=== PATIENT | male | born 1980 | race Caucasian/White ===

== ENCOUNTER 2025-04-17 12:38 | Outpatient (AMB) | payer OTHER, SELFPAY ==
--- NOTE | 2025-04-17 12:46 | MHC.OFFVIS ---
Intake Visit Reasons: sz disorder Allergies No Known Allergies (No Known Allergies*) Allergy (Unverified 02/01/20 15:00) HPI Comments Details: The patient is a 44 year old individual presenting with debilitating headaches that have increased in frequency over the last few weeks. The patient reports experiencing headaches almost every day for the past 3-4 weeks, a significant increase from the previous frequency of a couple of times a month. The pain is typically on one side of the head and is perceived to stem from the location of a known cavernous angioma. Associated symptoms include dizziness when bending over and returning to a standing position, as well as a sensation of numbness and disorientation within the brain, particularly upon waking. Caffeine has recently been identified as a trigger. The patient has a history of a seizure disorder since the age of 5, which is attributed to a cavernous angioma. The patient was initially treated with carbamazepine (Tegretol) but was switched to Keppra 1000 mg twice daily a couple of years ago after being hospitalized for a pulmonary embolism. The last seizure occurred years ago due to medication non-adherence. The last brain scan was a long time ago, and the patient has not had regular neurologic follow-ups for some time. Chronic insomnia has been an issue for over a year, with the patient waking up feeling unrested and foggy. The patient reports not getting deep sleep and sometimes wakes after only a couple of hours. Previous treatments from primary care included hydroxyzine, and the patient has tried magnesium, tea, ZzzQuil, and a THC pen at night to aid sleep. Past medical history includes anxiety and depression, with poor tolerance to SSRIs in the past due to side effects. The patient has been sober from alcohol for 18 months and does not use other drugs but does use a THC pen for sleep. The patient is right-handed, works full-time, and is currently experiencing significant life stressors related to moving and merging families. Review of Systems Narrative Constitutional:? Complain of tiredness and fatigue HEENT:?No headache, vision changes, hearing loss, nasal congestion, sore throat. Cardiovascular:?No chest pain, palpitations, orthopnea, PND, or leg swelling. Respiratory:?No cough, shortness of breath, wheezing, or hemoptysis. Gastrointestinal:?No nausea, vomiting, abdominal pain, diarrhea, or constipation. Genitourinary:?No dysuria, frequency, incontinence, or hematuria. Musculoskeletal:? Complain of back pain neck pain and leg cramping Neurological:? Complain of numbness tingling, memory problems, headaches, dizziness, seizures, and problem with sleeping Psychiatric:?No anxiety, depression, mood swings, sleep disturbance, or hallucinations. Endocrine:?No heat/cold intolerance, polydipsia, polyuria, or hair/skin changes. Hematologic/Lymphatic:?No easy bruising, bleeding, or lymphadenopathy. Integumentary (Skin):?No rash, lesions, itching, or color changes. Allergic/Immunologic:?No seasonal allergies, hives, or recurrent infections. Physical Exam Neuro Other: Mental Status: Alert and oriented to person, place, and time. Normal attention. Normal spontaneous speech, fluency, and comprehension. No obvious issues with mood and memory. Affect is appropriate. Cranial Nerves: CN II: Visual bailey full to confrontation, visual acuity intact. CN III, IV, : Pupils equal, round, reactive to light and accommodation. Extraocular movements are normal. CN V: Facial sensation is normal. CN VII: Facial movements symmetrical. CN VIII: Hearing intact to bedside conversation is normal. CN IX, X: Palate elevates symmetrically. CN XI: Shoulder shrug and head turn symmetrical. CN XII: Tongue midline without atrophy or fasciculations. Motor: Bulk and tone normal in all extremities. No significant muscle weakness in arms and legs. No drift. Reflexes: Deep tendon reflexes 2+ and symmetric. Plantar response down-going bilaterally. Coordination: Aadjry-dq-daof with mild bilateral hand tremor Gait and Station: No obvious gait abnormality. No ataxia or instability. Sensory: Intact to light touch, pinprick, and vibration. Romberg is negative. Extrapyramidal: Mild bilateral hand postural tremor Speech: Normal; no dysarthria or tremor. Assessment & Plan Assessment & Plan (1) Generalized seizure disorder: Code(s): G40.309 - Generalized idiopathic epilepsy and epileptic syndromes, not intractable, without status epilepticus Category: Medical (2) Migraine without aura: Code(s): G43.009 - Migraine without aura, not intractable, without status migrainosus Category: Medical Qualifiers: Status migrainosus presence: without status migrainosus Intractability: not intractable Qualified Code(s): G43.009 - Migraine without aura, not intractable, without status migrainosus Plan Impression: a: Generalized seizure disorder since childhood attributed to a venous angioma b: Frequent migraine w/o aura type of headaches c: Mild postural essential tremor d: Insomnia due to untreated anxiety e: Anxiety disorder Rec: a: MRI brain WWO b: EEG c: SED rate/Lyme test/LFTs/Keppra level d: Sertraline 25mg one with breakfast I explained to the patient that the headaches are most likely migraine-type, but due to their recent and frequent onset, I ordered an MRI of the brain, an EEG, and blood tests to be thorough and provide peace of mind, particularly given the history of a cavernous angioma. I prescribed sumatriptan as a rescue medication for acute headaches. We had a detailed discussion about the chronic insomnia, which I believe is related to an overactive sympathetic nervous system likely exacerbated by stress. The patient expressed significant hesitation about retrying an SSRI due to past negative experiences with side effects, including sexual dysfunction. I explained the rationale for using a very low dose of sertraline (25 mg) for anxiety, noting that it is less likely to cause the same side effects as the higher doses used for depression. After discussing the potential benefits and the four-week timeframe for efficacy, the patient agreed to try sertraline. I also advised daily walking as a non-pharmacological approach to improve sleep. Orders: Orders Liver Panel Today G40.309 - Generalized idiopathic epilepsy and epileptic syndromes, not intractable, without status epilepticus MR head/brain wo/w con Today G40.309 - Generalized idiopathic epilepsy and epileptic syndromes, not intractable, without status epilepticus EEG Routine Today G40.309 - Generalized idiopathic epilepsy and epileptic syndromes, not intractable, without status epilepticus Erythrocyte Sedimentation Rate Today G40.309 - Generalized idiopathic epilepsy and epileptic syndromes, not intractable, without status epilepticus Lyme IgG/IgM w/reflex to WB Today G40.309 - Generalized idiopathic epilepsy and epileptic syndromes, not intractable, without status epilepticus Levetiracetam Keppra Today G40.309 - Generalized idiopathic epilepsy and epileptic syndromes, not intractable, without status epilepticus Medications: New sumatriptan succinate do not exceed 4 doses per 24 hrs 50 mg PO Q2-4H PRN 10 tabs 0RF migraine headache sertraline 25 mg PO DAILY 30 tabs 0RF Coding Level of Care Code New Pt Level 5 (89606) Diagnoses Generalized seizure disorder G40.309 Migraine without aura and without status migrainosus, not intractable G43.009 Status migrainosus presence: without status migrainosus Intractability: not intractable Time Spent (min) 60
--- OUTSIDE RECORDS SUMMARY | 2025-04-17 14:36 | XMS_ITS | Clinical Summary ---
Author Organization [address] Address [address] [place] [address] Phone Care Team Providers Care Trouble Shooting Mechanic Name Role Phone Adonay Black MD Primary Care Provider [phone] Allergies Active Allergy Reactions Criticality Noted Date Comments Morphine Swelling 10/31/2024 Medications hydrOXYzine HCL (ATARAX) 10 mg tabletIndication s:Insomnia, unspecified type TAKE 1-2 TABLETS BY MOUTH NIGHTLY NEEDED FOR SLEEP 180 tablet 3 10/31/2024 Active levETIRAcetam (KEPPRA) 1,000 mg tablet Take 1 tablet (1,000 mg total) by mouth 2 (two) times a day. 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 See discharge summary. Jimbo 01/06. Follow up 4 mo Multinodular goiter 12/22/2022 Subclinical hyperthyroidism 12/22/2022 Thyroid nodule 11/26/2022 Cavernous angioma 11/13/2022 Overview (04/07/2024): Per patient.. [facility] showed frontal lobe lesion that patient has had for some time which has been causing his seizure disorder. we have no documentation on file of MRI or DX previously Lumbar back pain with radicu lopathy affecting right lower extremity 04/17/2022 Dysplastic nevus 11/06/2010 Overview (04/07/2024): Dysplastic nevus 11/06 upper back (moderate atypia) Seizure disorder ([facility] V24, [facility] V28) 10/2008 Overview (04/07/2024): Neurology [facility] Immunizations Immunization Administration Dates Next Due Influenza Quadravalent, MDCK , 0.5ml, preservative free (Flucelvax) 6mo and older 02/22/2023,03/18/2021,01/30/2019 Influenza Quadrivalent, 0.5m l, preservative free (Fluarix; FluLaval; Fluzone) ages 6mo and older (Afluria) 3yo and older 02/15/2017 Influenza trivalent, 0.5mL, preservative free (Fluarix; FluLaval; Fluzone) ages 6mo and older (Afluria) 3 years and older 04/06/2024,03/18/2021,03/23/2014,2012 Influenza trivalent, with preservative (Fluzone; Afluria) 6mo and older 03/23/2014,02/03/2013 Influenza, live, intranasal, trivalent (FluMist) 2yo to less than 50yo 04/09/2024 Tdap Tetanus diptheria acell ular pertussis (Boostrix; Adacel) 7yo and older 11/26/2021,06/26/2010 Surgical History Surgery Date Site/Laterality Comments OTHER SURGICAL HISTORY PROCEDURE: HISTORY OTHER; COMMENT: oral surgery MOLE REMOVAL PROCEDURE: HISTORICAL MOLE (REMOVAL OF) BACK SURGERY PROCEDURE: HISTORICAL BACK SURGERY; COMMENT: Right L5-S1 Microdiscectomy VASECTOMY 03/17/2024 - 04/15/2024 Medical History Medical History Date Comments Seizure disorder ([facility] V24, [facility] V28) 1984 DX:Seizure disorder ([facility]) Dysplastic nevus 11/06/2010 DX:Dysplastic n evus Anxiety DX:Anxiety Thyroid nodule 11/26/2022 DX:Thyroid nodul e Family History Medical History Relation Name Comments Diabetes Grandparent Relation Name Status Comments Father Alive Grandparent Maternal Grandmother Alive Mother Alive Paternal Grandfather Paternal Grandmother Social History Tobacco Use Types Packs/Day Years Used Date Smoking Tobacco: Never Smokeless Tobacco: Never Tobacco Cessation:Counseling Given: Not Answered Alcohol Use Standard Drinks/Week Comments Yes 0 (1 standard drink = 0.6 oz pur e alcohol) Housing Instability Answer Date Recorde d Are you worried that in the next 2 months you may not have stable housing? Patient declined 06/05/2024 Food Access & Nutrition Answer Date Rec orded Do you have access to a vari ety of food including fruits and vegetables? Yes 06/05/2024 Health Literacy Answer Date Recorded How often do you need to hav e someone help you when you read instructions, pamphlets, or other written material from your doctor or pharmacy? Never 06/05/2024 Caregiver: How often do you need to have someone help you when you read instructions, pamphlets, or other written material from your doctor or pharmacy? Not on file 06/05/2024 Financial Risk Answer Date Recorded How hard is it for you to pa y for the very basics like food, housing, medical care, and air conditioning / heating? Very hard 06/05/2024 Transportation Answer Date Recorded Has the lack of transportati on kept you from meetings, work, or from getting things needed for daily living? No Has the lack of transportati on kept you from medical appointments or from getting medications? No 06/05/2024 Social Isolation Answer Date Recorded How often do you feel lonely or isolated from th ose around you? Often 06/05/2024 Food Risk Answer Date Recorded Within the past 12 months we worried whether our food would run out before we got money to buy more. Sometimes true 025 Within the past 12 months th e food we bought just didn't last and we didn't have money to get more. Sometimes true 06/05/2024 Dependent Care Answer Date Recorded Do you need help finding or paying for care for your loved ones. For example, child care centre manager or elderly care for an older adult? No 06/05/2024 Education Answer Date Recorded Do you think completing more education or training, like finishing a GED, going to college, or learning a trade, would be helpful for you? No 06/05/2024 Employment and Income Answer Date Recor ded During the last four weeks, have you been actively looking for work? Yes 06/05/2024 Living Situation Answer Date Recorded What is your living situation? Unrecognized valu e 06/05/2024 Sex and Gender Information Value Date Recorded Sex Assigned at Not on file Legal Sex Male 1:08 PM EST Gender Identity Not on file Sexual Orientation Not on file Obstetrics History Last Filed Vital Signs Vital Sign Reading Time Taken Comments Blood Pressure 120/80 01/11/2025 1:13 PM EDT Pulse 90 01/11/2025 1:13 PM EDT Temperature 36.6 C (97.8 F) 10/31/2024 1:34 PM EDT Respiratory Rate 18 01/11/2025 1:13 PM EDT Oxygen Saturation - - Inhaled Oxygen Concentration - - Weight 83.5 kg (184 lb) 01/11/2025 1:13 PM EDT Height 185.4 cm (6' 1 ) 01/11/2025 1:13 PM EDT Body Mass Index 24.28 01/11/2025 1:13 PM EDT Plan of Treatment Health Maintenance Due Date Last Done Comments Hepatitis B Vaccines (1 of 3 - 19+ 3-dose series) 07/17/1999 HPV Vaccines (1 - 3-dose SCDM series) 07/17/2007 COVID-19 Vaccine ( season) 2025 04/21/2021, 09/14/2020, 08/23/2020 Influenza Vaccine (#1) 2025 , 04/06/2024, 02/22/2023, Additional history exists Social Influencers of Health Screening 06/05/2025 06/05/2024 Cholesterol Screening (Lipid Panel) 09/23/2027 09/22/2022 DTaP,Tdap,and Td Vaccines (3 - Td or Tdap) 11/27/2031 11/26/2021, 06/26/2010 RSV Immunization Adult Patients (1 - 1-dose 75+ series) 07/17/2055 HIV Screening Completed 05/13/2023 Hepatitis C Screening Completed 05/13/2023 Depression Screening Completed 06/05/2024 HIB Vaccines Aged Out No longer eligi ble based on patient's age to complete this topic Hepatitis A Vaccines Aged Out No long er eligible based on patient's age to complete this topic IPV Vaccines Aged Out No longer eligi ble based on patient's age to complete this topic MMR Vaccines Aged Out No longer eligi ble based on patient's age to complete this topic Meningococcal ACWY Vaccine Aged Out N o longer eligible based on patient's age to complete this topic Meningococcal B Vaccine Aged Out No l onger eligible based on patient's age to complete this topic Pneumococcal Vaccine: Pediatrics (0 to 5 Years) and At-Risk Patients (6 to 49 Years) Aged Out No longer eligible based on patient's age to complete this topic RSV Immunization Patients Under 20 months Aged Out No longer eligible based on patient's age to complete this topic Varicella Vaccines Aged Out No longer eligible based on patient's age to complete this topic Procedures Procedure Name Priority Date/Time Associated Diagnosis Comments HEPATITIS C SCREENING Routine 05/13/2023 HIV SCREENING Routine 05/13/2023 LIPID PANEL Routine 09/22/2022 from Last 3 Months or Most Recently Relevant to Health Maintenance Results * HIV Screening (05/13/2023) Pathologist [facility] HIV Screening Abstracted [facility] Provider HEALTH MAINTENANCE Final Result * Hepatitis C Screening (05/13/2023) [facility] Hepatitis C Screening Abstracted [facility] Provider HEALTH MAINTENANCE Final Result * Lipid panel (09/22/2022) [facility] LDL/HDL Ratio 2 0 - 4 Triglycerides 57 0 - 150 mg/dL Cholesterol 159 0 - 200 mg/dL HDL 88 >=40 mg/dL LDL Cholesterol 60 0 - 100 mg/dL Blood Venous blood specimen / Unknown [facility] Provider LAB BLOOD ORDERABLES Isabel l Result from Last 3 Months or Most Recently Relevant to Health Maintenance Insurance [facility] Care Teams Trouble Shooting Mechanic Relationship Specialty Start Date End Date Adonay Black MD [address] [place] [address] PCP - General 04/26/10
--- OUTSIDE RECORDS SUMMARY | 2025-04-17 14:36 | XMS_ITS | Data Portability ---
Author Organization [facility] - Oscar Hernandez [facility], [facility] Address [address] [place] [address] Assessment No assessment recorded. Plan of Treatment Reminders Order Date Submit Date Provider Last Modified By Organization Details Last Modified Time Details Appointments None recorded. Lab None recorded. Referral physical therapist referral - Evaluate & Rx Lumbar Stabilizati on Program 2023 024 [email or web address] Not available 13:01:57 Procedures None recorded. Surgeries None recorded. Imaging XR, lumbosacral spine, 4 or more view - 325 est pt l-spine series 4v 2023 024 [email or web address] 14 [facility], [address] [facility], [facility] [address], [place], [address], 4 13:01:57 Medication Orders cyclobenzap rine 5 mg tablet 2023 024 [email or web address] 14 [id number], [address] [place], [address], 4 13:01:57 Patient TargetsNo targets recorded. Patient InstructionsNo instructions recorded. Reason for Referral Physical Therapist Referral for Lumbar spondylosis Evaluate & RxLumbar Stabilization Program Referring Physician: Phuc Murry, Orthopedic Surgery, [id number] Encounter Date: 09/01/2023 Results Created Date Observation Date Name Description Value Unit Range Abnormal Flag Note LastModifiedBy Organization Detail LastModifiedTime 01/14/20 24 05/29/2022 imagi ng/di agnos tic resul t No observ ation record ed. [email or web address] Not Available 12/17 14:47:18 Result Notes None recorded. Problems Name Problem SNOMED Code Status Onset Date Resolution Date Notes Provider Name and Address Organization Details Recorded Time Lumbar spondylosis 494347402 Active 2023 Phuc Murry MD [address] [place] [address] [address], [place], [address], [facility] 4 10:51:22 Problem Notes None recorded. Medical Equipment None Reported. Allergies Allergen ID Allergen Name Allergen Category Reaction Reaction Severity Criticality Documentation Date Start Date Code Code System Note Provider Name and Address Organization Details Recorded Time 074512 morphine medicatio n Not available Not available Not available 09/01/2023 7052 RxNorm BENJA ENRIQUE [facility] 11:49:38 Medications Name Sig Start Date Stop Date Status Note LastModified by Organization Details LastModified Time benzonatate 200 mg capsule TAKE 1 CAPSULE BY MOUTH THREE TIMES A DAY NEEDED FOR COUGH FOR 7 DAYS active Not Available Not Available No t Available carbamazepine ER 200 mg tablet,extended release,12 hr TAKE 2 TABLETS BY MOUTH EVERY MORNING AND 3 TABS AT BEDTIME active Not Available Not Available No t Available escitalopram 10 mg tablet TAKE 1 TABLET BY MOUTH EVERY DAY active Not Available Not Available No t Available cyclobenzaprine 5 mg tablet TAKE 1 TABLET BY MOUTH NEEDED FOR 14 DAYS. active Not Available Not Available No t Available mirtazapine 7.5 mg tablet TAKE 1 TABLET BY MOUTH AT BEDTIME active Not Available Not Available No t Available levetiracetam 1,000 mg tablet TAKE 1 TABLET BY MOUTH TWICE A DAY active Not Available Not Available No t Available Eliquis 5 mg tablet TAKE 1 TABLET BY MOUTH TWICE A DAY active Not Available Not Available No t Available Eliquis DVT-PE Treatment 30-Day Starter 5 mg (74 tablets) in dose pack TAKE 2 TABLETS BY MOUTH TWO TIMES A DAY FOR 12 DOSES, THEN TAKE TAKE 1 TABLET BY MOUTH TWO TIMES A DAY active Not Available Not Available No t Available Vitals Date Recorded Body height Body mass index (BMI) Body weight Provider Name and Address Organization Details Last Updated DateTime 09/01/2023 187.96 cm 23.1 kg/m2 16251.63 g BENJA ENRIQUE [facility] 09/01/2023 10:23:08 Social History None recorded. Functional Status None recorded. Mental Status None recorded. Family History Nothing Reported. Medical History Condition Response Allergies/Hayfever N Coronary Artery Disease N Anxiety/Depression N Emphysema N Thyroid Problems N COPD N Pacemaker N Anemia N Kidney/Bladder Problems N Vascular Disease N Heart Attack ([place]) N Gastrointestinal Disease N Diabetes N Autoimmune disease N Bleeding Disorder N Orthotics N Arthritis N Seizures/Epilepsy N Blood Clot N AIDS/HIV N Congestive Heart Failure (CHF) N Acid Reflux (GERD) N Cancer N Stroke N Asthma N Peripheral Vascular Disease N Sleep Apnea N Hepatitis N Heart Disease N Rheumatoid Arthritis N Arrhythmia N Pulmonary Embolism N Fibromyalgia N Hypertension N Osteoporosis N Past Encounters Encounter ID Performer Location Encounter Start Date Encounter Closed Date Diagnosis/Indication Diagnosis SNOMED-CT Code Diagnosis ICD10 Code Diagnosis IMO Codes Diagnosis Note [id number] Phuc Murry MD [place] [address] [place] [address] 09/01/2023 10:09:43 09/21/2023 14:27:56 Low back pain 605546573 M54.50 Lumbar spondylosis 36726 0009 M47.896 43-year-ol d male with lumbar spondylosi s. Diagnosis and treatment options were discussed. His prior radicular symptoms have resolved. Largest complaint today is lower back pain. He is currently on Eliquis for pulmonary embolism. Appropriat e timing and doses of acetaminop hen were discussed. I will prescribe tizanidine to help with his spasms. I will refer him to physical therapy for the lumbar spine he will follow-up in 6 weeks.Leena ent has been prescribed medication today. Risks, benefits interactio ns with other medication s have been reviewed and gone over with the patient today. It has been electronic ally sent to the pharmacy. Health Concerns Section Related Observation LastModified by Organization Detai ls LastModified Time None Recorded Concern Status LastModified by Organization Details LastModified Time None Recorded Advance Directives Directive None Recorded Payers Insurance Date Sequence Insurance Name Policy Number Policy Rodriguez Covered Member ID Rodriguez Member ID Guarantor Name 10/18/[address] [place] [address] ([facility]) [id number] Alexx Quintero [id number] Alexx Quintero Notes Date Note Type Note Provider Name and Address Organization Details Recorded Time 09/01/2023 text/html ROS as noted in the HPI 43-year-old male previously seen about a year and a half ago follows up for the lumbar spine. He states that he had an illness and sustained a pulmonary embolism and is on anticoagulation which delayed treatment for his back. However last encounter he was noted to have a disc herniation with radiculopathy which has resolved at this time. He complains of mostly axial back pain in the lower back in the region of the sacroiliac joint and just proximal. Denies radiating pain or numbness and tingling. Currently taking Tylenol. Phuc Murry MD [address] [place] [address] [address], [place], [address], [facility] 09/01/2023 11:13:26
--- OUTSIDE RECORDS SUMMARY | 2025-04-17 14:36 | XMS_ITS | Clinical Summary ---
Author Organization [facility] Address [address] [place] [address] Care Team Providers Care Systems Designer Name Role Phone Jason Black MD Primary Care Provider [phone] Allergies No known active allergies Medications Medication Sig Dispensed Refills Start Date End Date Status Eliquis 5 MG TABS tablet Take 1 tablet (5 mg total) by mouth 2 (two) times a day. 0 11/28/2022 Active carBAMazepine (TEGretol XR) 200 MG 12 hr tablet TAKE 2 TABLETS BY MOUTH EVERY MORNING AND 3 TABS AT BEDTIME 0 10/15/2022 Active levETIRAcetam (KEPPRA) 1000 MG tablet Take 1 tablet (1,000 mg total) by mouth 2 (two) times a day. 0 11/26/2022 Active Active Problems No known active problems Social History Tobacco Use Types Packs/Day Years Used Date Smoking Tobacco: Never Smokeless Tobacco: Never Tobacco Cessation:Counseling Given: Not Answered Alcohol Use Standard Drinks/Week Comments Yes 0 (1 standard drink = 0.6 oz pur e alcohol) daily Sex and Gender Information Value Date Recorded Sex Assigned at Male 09/23/2022 10:23 AM EDT Gender Identity Not on file Sexual Orientation Not on file Job Start Date Occupation Industry Not on file Not on file Not on file Last Filed Vital Signs Vital Sign Reading Time Taken Comments Blood Pressure 115/65 09/14/2023 10:16 AM EDT Pulse 84 09/14/2023 10:16 AM EDT Temperature 36.3 C (97.3 F) 09/14/2023 10:16 AM EDT Respiratory Rate - - Oxygen Saturation 100% 09/14/2023 10:16 AM EDT Inhaled Oxygen Concentration - - Weight 79.8 kg (176 lb) 09/14/2023 10:16 AM EDT Height 185.4 cm (6' 1 ) 09/14/2023 10:16 AM EDT Body Mass Index 23.22 09/14/2023 10:16 AM EDT Plan of Treatment Health Maintenance Due Date Last Done Comments Hepatitis B Vaccines (1 of 3 - 3-dose series) 1980 Hepatitis C Screening 1980 Depression Screening 1992 Preventative Health Evaluation 1998 COVID-19 Vaccine ( season) 2025 04/21/2021, 09/14/2020, 08/23/2020 Influenza Vaccine (#1) 2025 , 03/18/2021, 01/30/2019, Additional history exists DTap / Tdap / Td (3 - Td or Tdap) 11/27/2031 11/26/2021, 06/26/2010 Pneumococcal Vaccine Aged Out No long er eligible based on patient's age to complete this topic RSV Ped < 20 months Aged Out No longe r eligible based on patient's age to complete this topic Care Teams Systems Designer Relationship Specialty Start Date End Date Jason Black MD PCP - General Conveyor Worker 09/23/22
--- OUTSIDE RECORDS SUMMARY | 2025-04-17 14:36 | XMS_ITS | Encounter Summary ---
Author Organization [facility] Address [address] [place] [address] Care Team Providers Care Prover Name Role Phone Adonay Black MD Primary Care Provider [phone] Encounter Details Date Type Department Care Team (Latest Contact Info) Description 04/03/2024 Lab Requisition [facility] - Main Lab [address] [facility] [place] [id number] Gerardo Aguilera MD [address] [place] [address] Encounter for sterilization Social History Tobacco Use Types Packs/Day Years Used Date Smoking Tobacco: Never Smokeless Tobacco: Never Alcohol Use Standard Drinks/Week Comments Yes 0 (1 standard drink = 0.6 oz pur e alcohol) Sex and Gender Information Value Date Recorded Sex Assigned at Not on file Legal Sex Male 1:08 PM EST Gender Identity Not on file Sexual Orientation Not on file documented as of this encounter Plan of Treatment Not on file documented as of this encounter Procedures Procedure Name Priority Date/Time Associated Diagnosis Comments AP OUTSIDE CONSULT Routine 03/28/2024 Encounter for sterilization documented in this encounter Results * Anatomic pathology outside consult (03/28/2024) Final Diagnosis A. Vas Deferens, Right, vasectomy: - Vas deferens within normal limits; loops of lumen, epithelium, and muscle layers present. B. Vas Deferens, Left, vasectomy: - Vas deferens within normal limits; loops of lumen, epithelium, and muscle layers present. 04/03/2024 1:42 PM EST [facility] at 1342 EST Clinical Information Z30.2 - Encounter for sterilization [id number] 04/03/2024 1:42 PM EST [facility] Gross Description A. Vas Deferens, Right, Right: Labeled right vas deferens . Received in formalin is a 0.2 x 0.3 cm rubbery, saha, tubular portion of tissue, with a central pinpoint lumen, which is submitted in toto in one cassette, between sponges, one piece, embed on end. (The luminal aspect is inked red to assist with embedding orientation.) B. Vas Deferens, Left, Left: Labeled left vas deferens . Received in formalin is a 0.2 x 0.3 cm rubbery, saha, tubular portion of tissue, with a central pinpoint lumen, which is submitted in toto in one cassette, between sponges, one piece, embed on end. (The luminal aspect is inked red to assist with embedding orientation.) /al 04/03/2024 1:42 PM EST [facility] Disclaimer Unless otherwise specified, all tissue is 10% NB formalin fixed and paraffin embedded. Technical pathology services provided by [facility] at [address] [place] [address] [address], [place] [address] (CLIA #[id number]/Clotilde Arreola MD, Lace Finisher) 04/03/2024 1:42 PM EST [facility] Tissue Structure of left vas deferens / Unknown 03/28/2024 04/03/2024 9:53 AM EST Tissue specimen (specimen) Structure of left vas deferens / Unknown 03/28/2024 04/03/2024 9:53 AM EST us Gerardo Aguilera MD LAB PATHOLOGY ORDERABLES Final Result [facility] [address] [place], [place] [address]RUST [phone] documented in this encounter Visit Diagnoses Diagnosis Encounter for sterilization Sterilization documented in this encounter Care Teams Prover Relationship Specialty Start Date End Date Adonay Black MD [address] [place] [id number] PCP - General 04/26/10 documented as of this encounter
== END 2025-04-17 13:16 | disposition home or self-care (01) ==
LOC: HO.HSM 12:39
PROVIDERS: PCP Pediatrics; Visit Provider Psychiatry & Neurology Neurology
DX: G40.309 Generalized idiopathic epilepsy and epileptic syndromes, not intractable, without status epilepticus (principal); G43.009 Migraine without aura, not intractable, without status migrainosus
CPT/HCPCS: 99205

== ENCOUNTER 2025-04-17 12:38 | Outpatient (REF) | payer OTHER, SELFPAY ==
[2025-04-17 14:34] LABS: Alanine Aminotransferase 21 U/L (0-40); Albumin Level 4.8 g/dL (3.5-5.0); Alkaline Phosphatase 63 U/L (39-117); Aspartate Amino Transferase 19 U/L (5-37); Total Protein 7.5 g/dL (6.5-8.0)
[2025-04-17 14:53] LABS: Erythrocyte Sedimentation Rate 2 MM/HR (0-15)
--- OUTSIDE RECORDS SUMMARY | 2025-04-17 15:30 | XMS_ITS ---
Author Name [facility] Organization Unknown Care Team Organization Name Specialty Phone Email Start Date End Da te [facility] 10/23/2022 01/03/2024 [facility] 03/24/2022 01/03/2024
[2025-04-18 06:09] LABS: Lyme Abs Screen <0.90 index
[2025-04-20 09:33] LABS: Levetiracetam Keppra 24.3 mcg/mL (10.0-40.0)
== END 2025-04-17 12:39 | disposition home or self-care (01) ==
LOC: HO.LAB 12:38
PROVIDERS: PCP Pediatrics; Visit Provider Psychiatry & Neurology Neurology
DX: G40.309 Generalized idiopathic epilepsy and epileptic syndromes, not intractable, without status epilepticus (principal); G43.009 Migraine without aura, not intractable, without status migrainosus
CPT/HCPCS: 36415; 80076; 80177; 85652; 86617; 86618